=== PATIENT | male | born 1960 | race Two or more races ===

== ENCOUNTER 2016-02-14 18:18 | Inpatient (IN) | payer OTHER ==
[~2016-02-14 18:18] MED LIST: Aspirin (Orange Enteric Coated) 325 mg tab PO SCH
[2016-02-14] MEDS ORDERED: SODIUM CHLORIDE 0.9% 10 ML FLUSH FLUSH PRN (18:47)
[2016-02-14] MEDS ORDERED: NS 1,000 ML IV ONE ×2 (18:47)
[2016-02-14 19:01] LABS: AUTOMATED BASOPHIL 0.3 % (0-2); AUTOMATED EOSINOPHIL 2.9 % (0-5); AUTOMATED LYMPH 22.5 % (17-44); AUTOMATED MONOCYTE 8.9 % (3-10); AUTOMATED NEUTROPHIL 65.4 % (45-76); MPV 8.1 fL (7.4-10.4)
[2016-02-14 19:14] LABS: PARTIAL THROMB. TIME 25.1 SEC (22-35); PT-INR 1.1
[2016-02-14 19:17] LABS: BLOOD UREA NITROGEN 9 MG/DL (9-20); CALCIUM 9.3 MG/DL (8.4-10.2); CALCULATED OSMOLALITY 271 MOs/Kg (270-290); CHLORIDE 104 mEq/L (98-107); CPK TOTAL WITH POSSIBLE MB 44 IU/L (55-170); GLUCOSE 86 MG/DL (70-99); SODIUM LEVEL 142 mEq/L (137-146); TOTAL PROTEIN 7.8 G/DL (6.3-8.2)
--- NOTE | 2016-02-14 19:17 | DIRPT ---
CLINICAL DATA: Suspected stroke. Right-sided "mouth drag" for two days and right eye problems. EXAM: PORTABLE CHEST 1 VIEW COMPARISON: Chest CT 11/07/2014 FINDINGS: Cardiomediastinal contours are unchanged. No confluent airspace disease, large pleural effusion or pneumothorax. Question mild vascular congestion versus technique. No acute osseous abnormalities are seen. IMPRESSION: Question vascular congestion versus secondary to AP technique. Otherwise no acute process. Electronically Signed By: Мария Martinez M.D. On: 02/14/2016 19:15
[2016-02-14 19:18] LABS: ALL NEG? YES; MDMA* NEG (NEGATIVE); METHAMPHETAMINES NEG (NEGATIVE); OXYCODONE NEG (NEGATIVE)
[2016-02-14 19:19] LABS: LEUKOCYTES/URINE NEG (NEGATIVE); NITRITE/URINE NEG (NEGATIVE); RBC/URINE 0-2 (0-2); URINE OCCULT BLOOD NEG (NEG/TRACE); WBC/URINE 0-2 (0-2)
--- NOTE | 2016-02-14 19:23 | DIRPT ---
CLINICAL DATA: Code stroke. Right facial droop for 2 days. EXAM: CT HEAD WITHOUT CONTRAST TECHNIQUE: Contiguous axial images were obtained from the base of the skull through the vertex without intravenous contrast. COMPARISON: None. FINDINGS: Generalized atrophy, advanced for age. Decreased attenuation of the periventricular and deep white matter, most consistent chronic small vessel ischemia. Small lacunar infarct in the right caudate. No CT findings of acute territorial ischemia. No intracranial hemorrhage, mass effect, or midline shift. No hydrocephalus. The basilar cisterns are patent. No intracranial fluid collection. Calvarium is intact. Mucosal thickening of the included maxillary sinuses, sphenoid sinuses, and scattered ethmoid air cells. Mastoid air cells are well aerated. IMPRESSION: 1. Atrophy, advanced for age, with chronic small vessel ischemia. Age indeterminate lacunar infarct in the right caudate. 2. Paranasal sinus inflammatory change. These results were called by telephone at the time of interpretation on 02/14/2016 at 7:[address] Caruso, who verbally acknowledged these results. Electronically Signed By: Мария Martinez M.D. On: 02/14/2016 19:20
[2016-02-14] MEDS ORDERED: ASPIRIN 300 MG SUPP PR ONE (19:44)
[2016-02-14] MEDS ORDERED: ACETAMINOPHEN 325 MG/TAB TABLET PO PRN (20:30)
[2016-02-14] MEDS ORDERED: ONDANSETRON HCL 4 MG/2 ML VIAL IV PRN (20:30)
--- NOTE | 2016-02-14 20:34 | HISTPHYS ---
- Chief Complaint slurred speech, vision changes - History of Present Illness 55 year old male with history of DVT and severe uncontrolled hypertension was being admitted to the hospital [facility] due to a lacunar infarct. Patient tells me that he was having trouble driving and staying in the lines on the road due to some changes in his vision. Family is at the bedside and tell me that he was slurring his speech, acting a little confused and also they noticed a right facial droop. The slurred speech is improved, the facial droop is still slightly there, they feel. Later in the interview, the patient admits to me that he was in this ER several months ago and was diagnosed with a DVT. He was sent home with a prescription for Xarelto, but stopped taking it after a couple of days after he saw some commercials on TV talking about how dangerous the medication is. Otherwise he did not have any trouble tolerating the Xarelto, and denied any bleeding or other complications at the time. He also says that his systolic blood pressure is commonly above 220, this runs in the family. He says that he has a strong family history of heart disease and strokes which she understands is related to high blood pressure. However, he does not take any medication for this. Today he tells me that his blood pressure is low, with a systolic blood pressure in the 180s therefore he does not feel very concerned about it. He says that when his blood pressure goes high any feels bad, he takes some chewable aspirin and that helps blood pressure. During our interview , he repeatedly asks me if he can just go home, come back later for the MRI. He also repeatedly argued with me and says that his blood pressure is low, and that he does not need to be on Xarelto because it causes bleeding. After I pressed him on the several times, he agrees to consider staying in the hospital , and will be on Xarelto if I feel strongly about it. On further questioning, the patient denies any chest pain, shortness of breath, nausea, vomiting, fevers , chills, not diarrhea or constipation. No pain anywhere. He does not feel that he ever slurred speech, or was confused at any time. Feels that his vision changes that brought to the emergency department earlier today are now resolved. Family at the bedside are very upset and tearful at his noncompliance and lackadaisical attitude towards his health. - Medical History Cardiac History: Reports: Hypertension Psychological History: Denies: Depression - Medictions/Allergies Allergies No Known Allergies Allergy (Verified 02/14/16 18:27) Home Medications Aspirin 650 mg PO QHS 11/07/14 - Social History Smoking Status: Heavy tobacco smoker (5 or more cigarettes/day or daily pipe/ cigar) - Review of Systems Yes All systems reviewed and were negative except as marked (And as mentioned in the history of present illness above.) - Physical Exam Vital Signs: Initial Vitals Pulse Rate 83 02/14/16 18:50 Respiratory Rate 20 02/14/16 18:50 Blood Pressure 154/94 02/14/16 18:50 Pulse Oxygen Saturation 96 02/14/16 18:50 Constitutional: Alert (Awake, Fully oriented, well appearing. No apparent distress) Oriented to: Time, Person, Place Exam: minimal l facial droop, no slurred speech currently - HEENT Head: Normal (normocephalic,atraumatic, trachea midline) Eye: Normal (EOMI, Sclera white) Oropharynx: Normal (moist) Nose: No Symptoms Reported (without discharge or bleeding) Respiratory: Normal - CTA (Clear to auscultation bilaterally, no wheezing,rales or rhonchi. No use of accessory muscles) Cardiovascular: Normal (RRR, no murmurs, rubs or gallops) - GI Palpation: Normal (soft, non distended and nontender) - Musculoskeletal Extremities: Normal (normal tone, no cyanosis or edema) - Integumentary Skin: Normal (no rashes or lesions) - Neurologic Cranial Nerve: Normal (CN II-XII intact) Mood Description: Normal (Fully oriented and appropiate affect) - Focused CV Perfusion Exam Vital Signs: Last Vital Signs Temp Pulse 84 02/14/16 20:11 Resp 20 02/14/16 20:11 BP 155/94 02/14/16 20:11 Pulse Ox 96 02/14/16 20:11 - Lab Results Laboratory Tests 02/14/16 02/14/16 02/14/16 18:42 18:42 18:42 WBC 8.8 Hgb 19.0 H Plt Count 226 INR 1.1 Potassium 3.9 BUN 9 Creatinine 1.00 - Diagnostic Findings CT Head: 1. Atrophy, advanced for age, with chronic small vessel ischemia. Age indeterminate lacunar infarct in the right caudate. 2. Paranasal sinus inflammatory change. These results were called by telephone at the time of interpretation on 02/14/2016 at 7:[address] Caruso, who verbally acknowledged these results. - Assessment (1) Lacunar infarction Acute This patient is being admitted to the hospital using acute CVA evidence based care order set. Patient was made NPO. Will be evaluated by speech therapy, PT and OT. Check hemoglobin A1c, fasting lipids. Started on daily aspirin as well as atorvastatin daily. CT of the head as mentioned above with right-sided lacunar infarction. Will obtain MRI of the brain, as well as echocardiography and carotid Dopplers. I strongly advised the patient to be compliant with medication recommendations, and told him that the risk of stroke and heart disease with severe uncontrolled hypertension like he has far outweighs the risks of medication. (2) HTN (hypertension) I10 - ESSENTIAL (PRIMARY) HYPERTENSION Acute Says that he normally has very uncontrolled hypertension. Will allow for permissive hypertension up to systolic of 200 in the 1st 48 hours. He will certainly need multiple agents at discharge to get his blood pressure under control. (3) Slurred speech R47.81 - SLURRED SPEECH Acute Seems to already be improving. (4) Noncompliance Z91.19 - PATIENT'S NONCOMPLIANCE W OTH MEDICAL TREATMENT AND REGIMEN Acute The patient suffers from a severe case of denial when it comes to his health. Family are very concerned, I did my best to impress upon him the importance of treating his above serious and life-threatening issues. (5) DVT (deep venous thrombosis) I82.409 - ACUTE EMBOLISM AND THOMBOS UNSP DEEP VN UNSP LOWER EXTREMITY Acute Patient was diagnosed with lower extremity DVT here in the emergency department back in June of 2014. He was sent home with a prescription for Xarelto , and never followed up with primary care physician afterwards. He discontinued taking the medication soon thereafter, when he saw commercials talking about the side effects of this medication. Interestingly, he came to the emergency department 4 months later complaining of leg pain and at the time admitted to stopping his Xarelto. He was implored to resume this medication and follow up with primary care physician, though he never did so. Will obtain bilateral lower extremity Doppler ultrasounds, but start the patient on Eliquis empirically in the meantime. - Plan In summary this patient is acutely and critically ill. The patient requires treatment of vital organ failure and measures to prevent further life- threatening deterioration of the above conditions. I personally reviewed and ordered lab testing, as well as imaging. I reviewed old medical records from previous hospitalizations as available, and spent the time mentioned below in critical care of this patient including counseling and coordination of care. Case Care Discussed with: Patient, Family, Nursing Staff Total Time: 110
--- NOTE | 2016-02-14 20:51 | EDPRACDOC ---
- General Information Chief Complaint: Neuro Symptoms/Deficits Stated Complaint: STROKE-LIKE SYMPTOMS Time Seen by Provider: 02/14/16 18:37 Information Source: Patient, Family Mode of Arrival:: Car Home Medications: Home Medications Aspirin 650 mg PO QHS 11/07/14 Allergies/Adverse Reactions: Allergies Allergy/AdvReac Type Severity Reaction Status Date / Time No Known Allergies Allergy Verified 02/14/16 18:27 - History of Present Illness Exact Onset of Symptoms: Unknown Date Symptoms Started: 02/12/16 Symptoms Started: Reports: Suddenly Symptoms: Reports: Difficulty walking, Other motor weakness, Slurred speech Symptoms Description: Worsening Symptom Severity: Reports: Unable to performs ADL's Weakness: Right: Face Relevant History of: Denies: O, Anemia, CVA, DM, Electrolyte disorder, GI Bleed , [place], TIA Associated signs and symptoms:: Reports: None HPI: PT PRESENTS WITH TWO DAY HISTORY OR RIGHT SIDED FACIAL DROOP. STATES THAT WHEN HE IS DRIVING HE IS HAVING ISSUES SEEING THE WHITE AND YELLOW LINES. DENIES VISION LOSS BUT STATES NOTHING LOOKS CORRECT. ED Past Medical History - History Reviewed Yes Nurses notes reviewed and agree except as marked - Patient Medical History Cardiac History: Reports: Hypertension Psychological History: Denies: Depression Systemic History: Reports: Cancer (bladder) - Social Medical History Smoking Status: Heavy tobacco smoker (5 or more cigarettes/day or daily pipe/ cigar) EDM Review of Systems - Review of Systems ROS Negative Except as Marked: Yes All systems reviewed and were negative except as marked - Physical Exam Constitutional: Alert Oriented to: Time, Person, Place Last recorded Vital Signs: Last Vital Signs Temp Pulse 85 02/14/16 20:47 Resp 20 02/14/16 20:47 BP 157/90 02/14/16 20:47 Pulse Ox 96 02/14/16 20:47 Oxygen Pulse Oxygen Saturation 96 O2 Device Room Air Oxygen Flow Rate Fraction of Inspired Oxygen ( FIO2) - HEENT Head: Normal ( normocephalic) Eye Exam: Normal (PERRL, EOMI, Sclera white) Oropharynx: Normal (Pharynx:Moist without exudate,Gums-no swelling) Tympanic Membrane: Normal Nose: No Symptoms Reported (septum midline) Neck: Normal (FROM, trachea at midline) - Respiratory/Cardiovascular Respiratory: Normal - CTA (BBS clear to auscultation without adventitious sounds ) Cardiovascular: Normal (RRR without murmur, gallop or rub) - GI Auscultation: Normal (NABS) Palpation: Normal (Soft,No rebound or guarding, non distended) Tenderness: Non tender Rodríguez's Sign: Negative Rectal Exam: Deferred - Musculoskeletal Back: Normal (Non-Tender) Extremities: Normal (Normal tone, Pulses 2+ No cyanosis or edema, FROM) - Integumentary Skin: Normal, Warm, Dry Lymphatics: Normal (no adenopathy) - Neurologic Memory Impaired: Normal Motor Function: Normal (Normal tone, Pulses 2+ No cyanosis or edema, FROM) Cranial Nerve: Normal (CN II-X11 intact sensation, strength 5/5) Cerebellar: Normal Mood Description: Normal Perception: Normal NIH Stroke Scale Initial Evaluation Level of Consciousness: Alert LOC- Question: Answers Both Correctly LOC Commands: Both Task Correctly Best Gaze: Normal Visual: Partial Hemianopia Facial Palsy: Minor Paralysis Motor Arm LEFT: No Drift Motor Arm RIGHT: No Drift Motor Leg LEFT: No Drift Motor Leg RIGHT: No Drift Limb Ataxia: Absent Sensory: Normal Best Language: No Aphasia Dysarthria: Normal Extinction and Inattention: No Abnormality (Neglect) Score: 2out of42 - Differential Diagnosis CVA - Action Has patient received an Antithrombotic in the last 24hrs?: No Was an Antithrombotic given in the ED?: Yes Is patient a candidate for lytic therapy?: No Patient received TPA within 30 min of arrival?: No Reason IV Thrombolytics Contraindicated: Onset Undetermined Stroke Discharge Education: Risk Factors, Seeking Emerg. Treatment, Warning Signs/Symptoms, Medications at Discharge, Follow Up after Discharge - Results 02/14/16 18:42 02/14/16 18:42 WBC 8.8 xk/uL (3.8-10.8) 02/14/16 18:42 RBC 5.67 xM/uL (4.70-6.10) 02/14/16 18:42 Hgb 19.0 g/dL (14.0-18.0) H 02/14/16 18:42 Hct 56.3 % (42-52) H 02/14/16 18:42 MCV 99 fL (80-94) H 02/14/16 18:42 MCH 33.6 pg (27-32) H 02/14/16 18:42 MCHC 33.8 g/dl (33-36) 02/14/16 18:42 RDW 15.5 % (11.5-14.5) H 02/14/16 18:42 Plt Count 226 xk/uL (130-400) 02/14/16 18:42 MPV 8.1 fL (7.4-10.4) 02/14/16 18:42 Neut % (Auto) 65.4 % (45-76) 02/14/16 18:42 Lymph % (Auto) 22.5 % (17-44) 02/14/16 18:42 [place] % (Auto) 8.9 % (3-10) 02/14/16 18:42 Eos % (Auto) 2.9 % (0-5) 02/14/16 18:42 Baso % (Auto) 0.3 % (0-2) 02/14/16 18:42 Absolute Neuts (auto) 5.72 xk/uL (1.7-8.2) 02/14/16 18:42 Absolute Lymphs (auto) 1.94 xk/uL (0.65-4.75) 02/14/16 18:42 PT 11.3 SEC (9.2-11.2) H 02/14/16 18:42 INR 1.1 02/14/16 18:42 APTT 25.1 SEC (22-35) 02/14/16 18:42 Sodium 142 mEq/L (137-146) 02/14/16 18:42 Potassium 3.9 mEq/L (3.5-5.1) 02/14/16 18:42 Chloride 104 mEq/L (98-107) 02/14/16 18:42 Carbon Dioxide 28 mMOL/L (22-33) 02/14/16 18:42 Anion Gap 14 mEq/L (8-16) 02/14/16 18:42 BUN 9 MG/DL (9-20) 02/14/16 18:42 Creatinine 1.00 MG/DL (0.66-1.25) 02/14/16 18:42 Estimated GFR (MDRD) > 60 mL/min (>=60) 02/14/16 18:42 Glucose 86 MG/DL (70-99) 02/14/16 18:42 Calculated Osmolality 271 MOs/Kg (270-290) 02/14/16 18:42 Calcium 9.3 MG/DL (8.4-10.2) 02/14/16 18:42 Total Bilirubin 0.8 MG/DL (0.2-1.3) 02/14/16 18:42 AST 22 IU/L (17-59) 02/14/16 18:42 ALT 22 IU/L (21-72) 02/14/16 18:42 Alkaline Phosphatase 117 IU/L (38-126) 02/14/16 18:42 Creatine Kinase 44 IU/L (55-170) L 02/14/16 18:42 Troponin I < 0.01 ng/mL (<.04) 02/14/16 18:42 Total Protein 7.8 G/DL (6.3-8.2) 02/14/16 18:42 Albumin 4.0 G/DL (3.5-5.0) 02/14/16 18:42 Urine Color Dark yellow 02/14/16 18:54 Urine Clarity Clear 02/14/16 18:54 Urine pH 6.0 (5.0-8.0) 02/14/16 18:54 Ur Specific [place] 1.030 (1.003-1.035) 02/14/16 18:54 Urine Protein 1+ (NEG/TRACE) H 02/14/16 18:54 Urine Glucose (UA) Neg (NEGATIVE) 02/14/16 18:54 Urine Ketones Neg (NEGATIVE) 02/14/16 18:54 Urine Occult Blood Neg (NEG/TRACE) 02/14/16 18:54 Urine Nitrite Neg (NEGATIVE) 02/14/16 18:54 Urine Bilirubin Neg (NEGATIVE) 02/14/16 18:54 Urine Urobilinogen 2 MG/DL (0-1) H 02/14/16 18:54 Ur Leukocyte Esterase Neg (NEGATIVE) 02/14/16 18:54 Urine RBC 0-2 (0-2) 02/14/16 18:54 Urine WBC 0-2 (0-2) 02/14/16 18:54 Ur Epithelial Cells Occ 02/14/16 18:54 Urine Mucus Occ (NEG/OCC) 02/14/16 18:54 Urine Opiates Screen Neg (NEGATIVE) 02/14/16 18:54 Ur Oxycodone Screen Neg (NEGATIVE) 02/14/16 18:54 Urine Methadone Screen Neg (NEGATIVE) 02/14/16 18:54 Ur Barbiturates Screen Neg (NEGATIVE) 02/14/16 18:54 Ur Tricyclics Screen Neg (NEGATIVE) 02/14/16 18:54 Ur Phencyclidine Scrn Neg (NEGATIVE) 02/14/16 18:54 Ur Amphetamines Screen Neg (NEGATIVE) 02/14/16 18:54 U Methamphetamines Scrn Neg (NEGATIVE) 02/14/16 18:54 Urine MDMA Screen Neg (NEGATIVE) 02/14/16 18:54 U Benzodiazepines Scrn Neg (NEGATIVE) 02/14/16 18:54 Urine Cocaine Screen Neg (NEGATIVE) 02/14/16 18:54 Ur THC Screen Neg (NEGATIVE) 02/14/16 18:54 Lab Results 02/14/16 02/14/16 02/14/16 18:54 18:54 18:42 WBC RBC Hgb Hct MCV MCH MCHC RDW Plt Count MPV Neut % (Auto) Lymph % (Auto) [place] % (Auto) Eos % (Auto) Baso % (Auto) Absolute Neuts (auto) Absolute Lymphs (auto) PT 11.3 H INR 1.1 APTT 25.1 Sodium Potassium Chloride Carbon Dioxide Anion Gap BUN Creatinine Estimated GFR (MDRD) Glucose Calculated Osmolality Calcium Total Bilirubin AST ALT Alkaline Phosphatase Creatine Kinase Troponin I Total Protein Albumin Urine Color Dark yellow Urine Clarity Clear Urine pH 6.0 Ur Specific [place] 1.030 Urine Protein 1+ H Urine Glucose (UA) Neg Urine Ketones Neg Urine Occult Blood Neg Urine Nitrite Neg Urine Bilirubin Neg Urine Urobilinogen 2 H Ur Leukocyte Esterase Neg Urine RBC 0-2 Urine WBC 0-2 Ur Epithelial Cells Occ Urine Mucus Occ Urine Opiates Screen Neg Ur Oxycodone Screen Neg Urine Methadone Screen Neg Ur Barbiturates Screen Neg Ur Tricyclics Screen Neg Ur Phencyclidine Scrn Neg Ur Amphetamines Screen Neg U Methamphetamines Scrn Neg Urine MDMA Screen Neg U Benzodiazepines Scrn Neg Urine Cocaine Screen Neg Ur THC Screen Neg 02/14/16 02/14/16 18:42 18:42 WBC 8.8 RBC 5.67 Hgb 19.0 H Hct 56.3 H MCV 99 H MCH 33.6 H MCHC 33.8 RDW 15.5 H Plt Count 226 MPV 8.1 Neut % (Auto) 65.4 Lymph % (Auto) 22.5 [place] % (Auto) 8.9 Eos % (Auto) 2.9 Baso % (Auto) 0.3 Absolute Neuts (auto) 5.72 Absolute Lymphs (auto) 1.94 PT INR APTT Sodium 142 Potassium 3.9 Chloride 104 Carbon Dioxide 28 Anion Gap 14 BUN 9 Creatinine 1.00 Estimated GFR (MDRD) > 60 Glucose 86 Calculated Osmolality 271 Calcium 9.3 Total Bilirubin 0.8 AST 22 ALT 22 Alkaline Phosphatase 117 Creatine Kinase 44 L Troponin I < 0.01 Total Protein 7.8 Albumin 4.0 Urine Color Urine Clarity Urine pH Ur Specific [place] Urine Protein Urine Glucose (UA) Urine Ketones Urine Occult Blood Urine Nitrite Urine Bilirubin Urine Urobilinogen Ur Leukocyte Esterase Urine RBC Urine WBC Ur Epithelial Cells Urine Mucus Urine Opiates Screen Ur Oxycodone Screen Urine Methadone Screen Ur Barbiturates Screen Ur Tricyclics Screen Ur Phencyclidine Scrn Ur Amphetamines Screen U Methamphetamines Scrn Urine MDMA Screen U Benzodiazepines Scrn Urine Cocaine Screen Ur THC Screen - EKG EKG #1 EKG Time: 18:34 -: Yes EKG interpreted by me Rate: bpm: 81 [place]: Normal Rhythm: NSR Block: None Hypertrophy: None ST: Normal - Departure Disposition: Admit IP To This Hospital Condition: Stable Final Diagnosis: CVA (cerebral vascular accident) Education/Counseling Given To: Patient Education/Counseling Given Regarding: Diagnosis, Treatment, Prognosis, Follow Up Decision to Admit Time: 20:54 Decision to admit date: 02/14/16 Decision to admit: from ED - Physician Consulted Hospitalist Time Called: 20:54 Provider Called: Samuel Mccormick Time Concierge Receptionist Returned Call: 20:54
[2016-02-14] MEDS ORDERED: ENOXAPARIN 40 MG/0.4 ML PFS SQ SCH (21:00)
[2016-02-14] MEDS ORDERED: Vaccine Screening Complete SCH (23:00)
[2016-02-14] MEDS: ATORVASTATIN 20 MG TAB PO SCH (23:05)
[2016-02-14] MEDS ORDERED: APIXABAN 5 MG TABLET PO SCH (23:57)
--- NOTE | 2016-02-14 23:58 | DIRPT ---
CLINICAL DATA: Acute onset of right leg pain and swelling for 1 week. Personal history of deep venous thrombosis. Initial encounter. EXAM: BILATERAL LOWER EXTREMITY VENOUS DOPPLER ULTRASOUND TECHNIQUE: Valdez-scale sonography with graded compression, as well as color Doppler and duplex ultrasound were performed to evaluate the lower extremity deep venous systems from the level of the common femoral vein and including the common femoral, femoral, profunda femoral, popliteal and calf veins including the posterior tibial, peroneal and gastrocnemius veins when visible. The superficial great saphenous vein was also interrogated. Spectral Doppler was utilized to evaluate flow at rest and with distal augmentation maneuvers in the common femoral, femoral and popliteal veins. COMPARISON: None. FINDINGS: RIGHT LOWER EXTREMITY Common Femoral Vein: Nonocclusive thrombus is noted within the common femoral vein. Saphenofemoral Junction: Occlusive thrombus is noted at the saphenofemoral junction. Profunda Femoral Vein: No evidence of thrombus. Normal compressibility and flow on color Doppler imaging. Femoral Vein: Occlusive thrombus is noted at the right femoral vein. Popliteal Vein: No evidence of thrombus. Normal compressibility, respiratory phasicity and response to augmentation. Calf Veins: No evidence of thrombus. Normal compressibility and flow on color Doppler imaging. Superficial Great Saphenous Vein: Occlusive thrombus is noted along the entirety of the right great saphenous vein. Venous Reflux: None. Other Findings: None. LEFT LOWER EXTREMITY Common Femoral Vein: No evidence of thrombus. Normal compressibility, respiratory phasicity and response to augmentation. Saphenofemoral Junction: No evidence of thrombus. Normal compressibility and flow on color Doppler imaging. Profunda Femoral Vein: No evidence of thrombus. Normal compressibility and flow on color Doppler imaging. Femoral Vein: No evidence of thrombus. Normal compressibility, respiratory phasicity and response to augmentation. Popliteal Vein: Occlusive thrombus is noted within the popliteal vein. Calf Veins: Occlusive thrombus is noted within the peroneal vein. Superficial Great Saphenous Vein: Occlusive thrombus is noted within the proximal left great saphenous vein. Venous Reflux: None. Other Findings: None. IMPRESSION: 1. Occlusive deep venous thrombosis within the right femoral vein and saphenofemoral junction, and nonocclusive thrombus at the right common femoral vein. 2. Occlusive deep venous thrombosis within the left popliteal vein and peroneal vein. 3. Occlusive superficial thrombus noted within the great saphenous veins bilaterally, more extensive on the right. These results were called by telephone at the time of interpretation on 02/14/2016 at 11:[address] YOAN SCHOFIELD MD, who verbally acknowledged these results. Electronically Signed By: Orlin Rodríguez M.D. On: 02/14/2016 23:55
[2016-02-15 00:25] LABS: CPK TOTAL WITH POSSIBLE MB 38 IU/L (55-170)
[2016-02-15] MEDS: APIXABAN 5 MG TABLET PO SCH ×3 (01:10→21:03)
[2016-02-15 03:42] VITALS: BMI 25.5
[2016-02-15 05:31] LABS: MPV 8.5 fL (7.4-10.4)
[2016-02-15 05:56] LABS: BLOOD UREA NITROGEN 6 MG/DL (9-20); CALCIUM 8.4 MG/DL (8.4-10.2); CALCULATED OSMOLALITY 265 MOs/Kg (270-290); CHLORIDE 107 mEq/L (98-107); GLUCOSE 84 MG/DL (70-99); LDL (calc.) 109.2 MG/DL (<100); SODIUM LEVEL 139 mEq/L (137-146); VLDL (calc.) 14.8 MG/DL (5-40)
--- NOTE | 2016-02-15 08:26 | DIRPT ---
CLINICAL DATA: Right-sided facial droop for the past 2 days. Double vision. History of smoking. EXAM: BILATERAL CAROTID DUPLEX ULTRASOUND TECHNIQUE: Valdez scale imaging, color Doppler and duplex ultrasound were performed of bilateral carotid and vertebral arteries in the neck. COMPARISON: None. FINDINGS: Criteria: Quantification of carotid stenosis is based on velocity parameters that correlate the residual internal carotid diameter with NASCET-based stenosis levels, using the diameter of the distal internal carotid lumen as the denominator for stenosis measurement. The following velocity measurements were obtained: RIGHT ICA: 55/20 cm/sec CCA: 63/13 cm/sec SYSTOLIC ICA/CCA RATIO: 0.9 DIASTOLIC ICA/CCA RATIO: 1.6 ECA: 77 cm/sec LEFT ICA: 76/24 cm/sec CCA: 76/17 cm/sec SYSTOLIC ICA/CCA RATIO: 1.0 DIASTOLIC ICA/CCA RATIO: 1.4 ECA: 106 cm/sec RIGHT CAROTID ARTERY: There is a minimal amount of eccentric mixed echogenic plaque involving the origin and proximal aspect the right internal carotid artery (image 13), not resulting in elevated peak systolic velocities within the interrogated course of the right internal carotid artery to suggest a hemodynamically significant stenosis. RIGHT VERTEBRAL ARTERY: Antegrade flow LEFT CAROTID ARTERY: There is a minimal to moderate amount of eccentric mixed echogenic partially shadowing plaque within the left carotid bulb (image 31 and 32), extending to involve the origin proximal aspect of the left internal carotid artery (image 42), not resulting in elevated peak systolic velocities within the interrogated course of the left internal carotid artery to suggest a hemodynamically significant stenosis. LEFT VERTEBRAL ARTERY: Antegrade flow IMPRESSION: Minimal to moderate amount of bilateral atherosclerotic plaque, left greater than right, not resulting in a hemodynamically significant stenosis within either internal carotid artery. Electronically Signed By: Jamey Sanders M.D. On: 02/15/2016 08:23
[2016-02-15] MEDS ORDERED: APIXABAN 5 MG TABLET PO SCH (09:00)
--- NOTE | 2016-02-15 17:20 | CAPUECHO ---
INDICATION: ISCHEMIC STROKE EVAL FORAMEN OVAL HEIGHT: 175.3 cm (5 ft 9.0 in) WEIGHT: 78.0 kg (172.0 lbs) BP: 154/87 BSA: 1.73877 m MEASUREMENTS 2D RVIDd: 2.6 cm EF Biplane: 56.88 % LAESV MOD A4C: 55.8 ml LAESV MOD A2C: 86.2 ml LAESV Index (A-L): 39.93 ml/m M-MODE IVSd: 1.2 cm LVIDd: 5.6 cm LVPWd: 1.2 cm LVIDs: 3.9 cm EF(Teich): 58 % Ao Diam: 3.5 cm LA Diam: 3.6 cm DOPPLER MV E Lm: 0.83 m/s MV A Lm: 0.57 m/s MV PHT: 39.38 ms MVA By PHT: 5.59 cm LVOT Vmax: 0.81 m/s AV Vmax: 1.00 m/s FINDINGS ------- Procedure:2D images, m-mode, color and spectral Doppler were obtained and reviewed. ECG rhythm:Sinus rhythm. Study quality:This was a technically adequate study. Left Ventricle:There is mild concentric left ventricular hypertrophy, normal contraction throughout, normal ejection fraction. The diastolic filling pattern is normal for the age of the patient. Right Ventricle:The right ventricle is normal in size and function. Left Atrium:The left atrium is normal in size. Right Atrium:The right atrium is normal in size and function. Septum appears normal. ASD/VSD:Interatrial and interventricular septum intact. Bubble study performed to eval interatrial septum. Negative study. Aortic Valve:The aortic valve is trileaflet, and appears structurally normal. No aortic stenosis or regurgitation. Mitral Valve:Normal appearing mitral valve. There is trace mitral regurgitation. Tricuspid Valve:The tricuspid valve appears structurally normal. Trace tricuspid regurgitation pre sent. Pulmonic Valve:The pulmonic valve is normal. Trace/mild (physiologic) pulmonic regurgitation. Aorta:The aortic root, ascending aorta and aortic arch appear normal. IVC:Normal inferior vena cava with normal inspiratory collapse. Pericardium:There is no pericardial effusion. CONCLUSIONS 1. Mild concentric left ventricular hypertrophy with normal systolic function (EF), no segmental abn ormality. 2. otherwise unremarkable study: - no intracardiac source for em boli identified. Electronically Signed By: Jerson Schwarz MD-- Electronically Signed On: 17:17:04
[2016-02-15] MEDS: ATORVASTATIN 20 MG TAB PO SCH (18:18)
[2016-02-15 20:10] VITALS: BP 158/86; PULSE 80; TEMP 97.7
--- NOTE | 2016-02-15 20:11 | GENMEDPROG ---
Chief Complaint: CVA, uncontr'd HTN, DVT BLE, ETOH abuse, blurred vision Subjective Note: Patient arguing and not wanting to have MRI, doesn't want to take any of recommended medications, not following diet, bringing in food from outside. He wants to leave, but his family is insisting that we keep him. Currently: Reports: Tobacco Use/Hx, Alcohol Hx, Ambulating, Other (blurred vision). Denies: Cough, Wheezing, HE, SOB, Nausea and Vomiting, Reflux Sx, Fever/Chills, Chest Pain DVT Prophylaxis: Yes (Eliquis) - Physical Examination Vital Signs and I&O: Last Vital Signs Temp 98.3 F 02/15/16 15:17 Pulse 83 02/15/16 19:05 Resp 18 02/15/16 15:17 BP 170/89 02/15/16 15:17 Pulse Ox 97 02/15/16 15:17 Oxygen Pulse Oxygen Saturation 97 O2 Device Room Air Oxygen Flow Rate Fraction of Inspired Oxygen ( FIO2) Intake & Output 02/12/16 02/13/16 02/14/16 02/15/16 23:59 23:59 23:59 23:59 Intake Total 1075 918 Output Total 800 Balance 1075 118 Patient's weight 78.426 kg General: Alert, Oriented x3, No acute distress, Well appearing, Well nourished HEENT: Normal, PERRLA, Anicteric Sclera, Mucous membr. moist/pink, Normocephalic. negative: EOMI (some lateral deviation of OS) Neck: Non-tender, Full range of motion, Normal Trachea alignment, Normal inspection, No Masses palpable, No Thyromegaly palpable Lymphatics: Normal Respiratory: Normal - CTA (Clear to auscultation bilaterally, no wheezing,rales or rhonchi. No use of accessory muscles) Cardiovascular: Regular rate and rhythm, Normal S1, Normal S2 GI: Normal bowel sounds, Soft, Non tender, No hepatospenomegaly, No masses Extremities/Musculoskeletal: Normal pulses, DJD, FROM Skin: Warm,Dry and Intact Neurological: Normal speech, Strength at 5/5 X4 ext, Normal tone, Cranial nerves 3-12 NL Psych/Mental Status: Appropriate, Normal Affect, Agitated, Anxious, Confabulating Lab/DI/Studies Reviewed: Laboratory Tests 02/15/16 02/15/16 04:30 04:30 WBC 7.0 Hgb 18.3 H Hct 53.9 H MCV 101 H Plt Count 204 Sodium 139 Potassium 3.6 Chloride 107 Carbon Dioxide 24 Anion Gap 12 BUN 6 L Creatinine 0.80 Estimated GFR (MDRD) > 60 Glucose 84 Calculated Osmolality 265 L Calcium 8.4 Triglycerides 74 Cholesterol 161 LDL Cholesterol, Calc 109.2 H VLDL Cholesterol, Calc 14.8 HDL Cholesterol 37.0 L Cholesterol/HDL Ratio 4.4 - Assessment (1) CVA (cerebral vascular accident) Acute I63.9 - CEREBRAL INFARCTION, UNSPECIFIED Qualifiers: CVA mechanism: thrombosis Precerebral and cerebral artery: middle cerebral artery Laterality of affected vessel: unspecified Qualified Code(s): I63.319 - Cerebral infarction due to thrombosis of unspecified middle cerebral artery Comment/Plan: R caudate nucleus with subacute infarct. Patient advised of need to stay, but prefers to leave. Will discharge on appropriate medications. (2) DVT (deep venous thrombosis) Acute I82.409 - ACUTE EMBOLISM AND THOMBOS UNSP DEEP VN UNSP LOWER EXTREMITY Qualifiers: DVT location: lower extremity Affected thrombotic vein of extremity: unspecified lower extremity proximal vein Laterality: left Chronicity: chronic Qualified Code(s): I82.5Y2 - Chronic embolism and thrombosis of unspecified deep veins of left proximal lower extremity Comment/Plan: Patient was diagnosed with lower extremity DVT here in the emergency department back in June of 2014. He was sent home with a prescription for Xarelto, and never followed up with primary care physician afterwards. He discontinued taking the medication soon thereafter, when he saw commercials talking about the side effects of this medication. Interestingly, he came to the emergency department 4 months later complaining of leg pain and at the time admitted to stopping his Xarelto. He was implored to resume this medication and follow up with primary care physician, though he never did so. Bilateral lower extremity Doppler US confirms the presence of chronic DVT in R femoral and L popliteal veins, starting the patient on Eliquis. (3) HTN (hypertension) Acute I10 - ESSENTIAL (PRIMARY) HYPERTENSION Qualifiers: Hypertension type: essential hypertension Qualified Code(s): I10 - Essential (primary) hypertension Comment/Plan: Says that he normally has very uncontrolled hypertension. His family states his symptoms may have started as long ago as Trudy Day. We will go ahead and start (Toprol-XL 100 mg 1 daily) antihypertensive medication. Encourage the patient to follow up with a local physician. (4) Lacunar infarction Acute Comment/Plan: This patient was admitted to the hospital using acute CVA evidence based care order set. Patient has been evaluated by speech therapy, PT and OT. Check hemoglobin A1c, fasting lipids. Started on daily aspirin as well as atorvastatin daily. CT of the head as mentioned above with right-sided lacunar infarction. Patient refused MRI of the brain, but did agree to echocardiography and carotid Dopplers. I strongly advised the patient to be compliant with medication recommendations, and told him that the risk of stroke and heart disease with severe uncontrolled hypertension far outweighs the risks of medication. Since the patient has a long history of non-compliance, as well as alcohol abuse, I will discontinue Aspirin since he will be taking Eliquis also. (5) Noncompliance Acute Z91.19 - PATIENT'S NONCOMPLIANCE W OT MEDICAL TREATMENT AND REGIMEN Comment/Plan: The patient suffers from a severe case of denial when it comes to his health. Family members are very concerned, I did my best to impress upon him the importance of treating his serious and life-threatening issues. (6) Slurred speech Acute R47.81 - SLURRED SPEECH Comment/Plan: Seems to already be improving. Additional Notes: Continue to observe overnight, anticipate discharge in AM on BP medications. Case Care Discussed with: Patient, Family, Nursing Staff Education/Counseling Given To: Patient, Family Member Education/Counseling Given Regarding: Diagnosis, Treatment, Prognosis Critical Care: No Couseling Time (>50% in counseling/coordination): No Code: 39892 (12+)
--- NOTE | 2016-02-15 20:37 | PCM.DCS92 ---
- Final/Secondary Discharge Diagnosis (1) CVA (cerebral vascular accident) Acute I63.9 - CEREBRAL INFARCTION, UNSPECIFIED Present on Admission: Yes thrombosis middle cerebral artery unspecified I63.319 - Cerebral infarction due to thrombosis of unspecified middle cerebral artery Comment: R caudate nucleus with subacute infarct. Patient advised of need to stay, but prefers to leave. Will discharge on appropriate medications. (2) DVT (deep venous thrombosis) Acute I82.409 - ACUTE EMBOLISM AND THOMBOS UNSP DEEP VN UNSP LOWER EXTREMITY Present on Admission: Yes lower extremity unspecified lower extremity proximal vein left chronic I82.5Y2 - Chronic embolism and thrombosis of unspecified deep veins of left proximal lower extremity Comment: Patient was diagnosed with lower extremity DVT here in the emergency department back in June of 2014. He was sent home with a prescription for Xarelto , and never followed up with primary care physician afterwards. He discontinued taking the medication soon thereafter, when he saw commercials talking about the side effects of this medication. Interestingly, he came to the emergency department 4 months later complaining of leg pain and at the time admitted to stopping his Xarelto. He was implored to resume this medication and follow up with primary care physician, though he never did so. Bilateral lower extremity Doppler US confirms the presence of chronic DVT in femoral and popliteal veins, starting the patient on Eliquis. (3) HTN (hypertension) Acute I10 - ESSENTIAL (PRIMARY) HYPERTENSION Present on Admission: Yes essential hypertension I10 - Essential (primary) hypertension Comment: Says that he normally has very uncontrolled hypertension. His family states his symptoms may have started as long ago as . We will go ahead and start antihypertensive medication. encourage the patient to follow up with a local physician. (4) Lacunar infarction Acute Present on Admission: Yes Comment: This patient was admitted to the hospital using acute CVA evidence based care order set. Patient has been evaluated by speech therapy, PT and OT. Check hemoglobin A1c, fasting lipids. Started on daily aspirin as well as atorvastatin daily. CT of the head as mentioned above with right-sided lacunar infarction. Patient refused MRI of the brain, but did agree to echocardiography and carotid Dopplers. I strongly advised the patient to be compliant with medication recommendations, and told him that the risk of stroke and heart disease with severe uncontrolled hypertension far outweighs the risks of medication. (5) Noncompliance Acute Z91.19 - PATIENT'S NONCOMPLIANCE W OTH MEDICAL TREATMENT AND REGIMEN Present on Admission: Yes Comment: The patient suffers from a severe case of denial when it comes to his health. Family members are very concerned, I did my best to impress upon him the importance of treating his serious and life-threatening issues. (6) Slurred speech Acute R47.81 - SLURRED SPEECH Present on Admission: Yes Comment: Seems to already be improving. Discharge Disposition: Home Discharge Condition: Improved Cognitive Discharge Status: Unimpaired Fuctional Discharge Status: Independent Physician Follow up/Referrals: Jamey Karu II, MD [Staff Physician] - One Week New Prescriptions: Apixaban [Eliquis] 10 mg PO BID #60 tablet Atorvastatin Calcium [Lipitor] 20 mg PO DAILY@1800 #30 tablet Metoprolol Succinate 100 mg PO DAILY #30 tab.er.24h O2 Device: Room Air Diet at Discharge: Heart Healthy, Low Salt Activity: As Tolerated, No Driving Call Office For: Worsening Symptoms Discontinue use of:: Alcohol, All Types of Tobacco - DC Summary Notes Hospital Course Note:: Discharge summary on patient named MICHAEL WOODS admitted to [facility] on 02/14/16 by Samuel Mccormick MD. Date of discharge is [02/15/16]. 55 year old male with history of DVT and severe uncontrolled hypertension was being admitted to the [facility] due to a lacunar infarct. Patient tells me that he was having trouble driving and staying in the lines on the road due to some changes in his vision. Family is at the bedside and tell me that he was slurring his speech, acting a little confused and also they noticed a right facial droop. The slurred speech is improved, the facial droop is still slightly there, they feel. Later in the interview, the patient admits to me that he was in this ER several months ago and was diagnosed with a DVT. He was sent home with a prescription for Xarelto, but stopped taking it after a couple of days after he saw some commercials on TV talking about how dangerous the medication is. Otherwise he did not have any trouble tolerating the Xarelto, and denied any bleeding or other complications at the time. He also says that his systolic blood pressure is commonly above 220, this runs in the family. He says that he has a strong family history of heart disease and strokes which he understands is related to high blood pressure. However, he does not take any medication for this. Today he tells me that his blood pressure is low, with a systolic blood pressure in the 180s therefore he does not feel very concerned about it. He says that when his blood pressure goes high any feels bad, he takes some chewable aspirin and that helps blood pressure. During our interview , he repeatedly asks me if he can just go home, come back later for the MRI. He also repeatedly argued with me and says that his blood pressure is low, and that he does not need to be on Xarelto because it causes bleeding. After I pressed him on the several times, he agrees to consider staying in the hospital , and will be on Xarelto if I feel strongly about it. On further questioning, the patient denies any chest pain, shortness of breath, nausea, vomiting, fevers , chills, not diarrhea or constipation. No pain anywhere. He does not feel that he ever slurred speech, or was confused at any time. Feels that his vision changes that brought him to the emergency department earlier today are now resolved. Family at the bedside are very upset and tearful at his noncompliance and lackadaisical attitude towards his health. This patient was admitted to the hospital using acute CVA evidence based care order set. Patient has been evaluated by speech therapy, PT and OT. Check hemoglobin A1c, fasting lipids. Started on daily aspirin as well as atorvastatin daily. CT of the head as mentioned above with right-sided lacunar infarction. Patient refused MRI of the brain, but did agree to echocardiography and carotid Dopplers. His carotid doppler study showed bilateral atherosclerotic plaque, but it was not hemodynamically significant for stenosis. Bilateral lower extremity Doppler US confirms the presence of chronic DVT in the right femoral and left popliteal veins, thus the patient was started on Eliquis. His echocardiogram was essentially normal other than some left ventricular hypertrophy from his uncontrolled hypertension. He was started on Eliquis, Metoprolol, and Lipitor prior to discharge, and strongly urged to take these medications as directed. He is advised to stop drinking alcoholic beverages in excess, and to follow up with his family physician in 1 week. Total Time: 65 min Code: 35872 (>30min.) - Physical Exam Vital Signs: Last Vital Signs Temp 97.7 F 02/15/16 20:09 Pulse 80 02/15/16 20:09 Resp 20 02/15/16 20:09 BP 158/86 02/15/16 20:09 Pulse Ox 93 02/15/16 20:09 Oxygen Pulse Oxygen Saturation 93 O2 Device Room Air Oxygen Flow Rate Fraction of Inspired Oxygen ( FIO2) Constitutional: No apparent distress, Alert (Awake, Fully oriented, well appearing. No apparent distress), Restless Oriented to: Time, Person, Place - HEENT Head: Normal (normocephalic,atraumatic, trachea midline) Eye: Normal (EOMI, Sclera white) Oropharynx: Normal (moist) Nose: No Symptoms Reported (without discharge or bleeding) - Respiratory/Cardiovascular Respiratory: Normal - CTA (Clear to auscultation bilaterally, no wheezing,rales or rhonchi. No use of accessory muscles) Cardiovascular: Normal - GI Auscultation: Normal Palpation: Normal (soft, non distended and nontender) Tenderness: Non tender Rectal Exam: Deferred - Musculoskeletal Back: Normal Extremities: Normal (normal tone, no cyanosis or edema) - Integumentary Skin: Warm, Dry Lymphatics: Normal - Neurologic Memory Impaired: Short-term Motor Function: Normal Cranial Nerve: Normal Cerebellar: Ataxia Mood Description: Normal (Fully oriented and appropiate affect) Thought: Coherent Perception: Normal
[2016-02-21] MEDS ORDERED: APIXABAN 5 MG TABLET PO SCH (21:00)
== END 2016-02-15 21:30 | disposition home or self-care (01) | DRG 65 ==
LOC: ED 18:18 → PCU 20:30
PROVIDERS: ADMIT Internal Medicine; ATTEND Family Medicine
DX: I63.319 Cerebral infarction due to thrombosis of unspecified middle cerebral artery (principal); I82.5Y2 Chronic embolism and thrombosis of unspecified deep veins of left proximal lower extremity; I10 Essential (primary) hypertension; R47.81 Slurred speech; H53.9 Unspecified visual disturbance; R29.810 Facial weakness; Z91.14 Patient's other noncompliance with medication regimen; F17.210 Nicotine dependence, cigarettes, uncomplicated
CPT/HCPCS: 36415; 70450; 71010; 80048; 80053; 80061; 80307; 81001; 82550; 84443; 84484; 85025; 85027; 85610; 85651; 85730; 93005; 93306; 93880; 93970; 94762; 96360; 96361; 99285; J1650; J3490